=== PATIENT | female | born 2000 | race Caucasian/White ===

== ENCOUNTER 2023-10-26 01:01 | Emergency (ER) | payer SELFPAY ==
[~2023-10-26] VITALS: Ht 165.1 cm; Wt 65.0 kg
[2023-10-26 01:05] VITALS: BP 127/92; PULSE 132; RESP 16; TEMP 98.8; O2SAT 100
== END 2023-10-26 01:45 | disposition left against medical advice (07) ==
LOC: ER 01:01
DX: R56.9 Unspecified convulsions (principal); Z53.21 Procedure and treatment not carried out due to patient leaving prior to being seen by health care provider
CPT/HCPCS: 82962